=== PATIENT | female | born 1955 | race Caucasian/White ===

== ENCOUNTER 2018-06-22 10:59 | Inpatient (IN) | payer MEDICARE ==
--- NOTE | 2018-06-22 11:09 | ED ---
Psychiatric Complaint - HPI Summary HPI Summary: Patient is a 63 y/o F presenting to ED with police officers for SI. Police report that they had received a call from the patient's friend stating that the patient had expressed thoughts of suicide and had grabbed a hammer and was wielding it. However, HI is denied. When police arrived, patient was non- compliant and uncooperative. They state she had repeated, "I didn't say anything " multiple times. In the room, the patient reports that she made some statements and that her friend called police. She states, "I don't want to " but when asked if she has been experiencing SI, she states, "I have some thoughts". She notes Hx of SI, one previous suicide attempt is noted. Patient lives in [place], she claims that she needs to leave soon as otherwise she will lose her housing. PMHx of HTN, HLD, diabetes is denied. Patient states that she takes daily medications but she states she cannot recall their names. PMHx of anxiety, depression. PSHx but she does not remember what surgeries she has had. FMHx of HTN, diabetes is denied. On triage, pain is denied. Nothing is noted to aggravate/alleviate Sx. Home medications and allergies are reviewed. - History Of Current Complaint Time Seen by Provider: 06/22/18 11:03 Hx Obtained From: Patient Onset/Duration: Still Present Timing: Constant Severity Currently: None - pain denied Character: Depressed Aggravating Factor(s): Nothing Alleviating Factor(s): Nothing Associated Signs And Symptoms: Positive: Negative Has Suicidal: Reports: Thoughts, Has Prior Attempt(s) Has Homicidal: Denies: Thoughts - Allergies/Home Medications Allergies/Adverse Reactions: Allergies Allergy/AdvReac Type Severity Reaction Status Date / Time Unable to Assess Allergy Verified 06/22/18 11:23 Home Medications: Home Medications NK [No Home Medications Reported] 06/22/18 [History Confirmed 06/22/18] PMH/Surg Hx/FS Hx/Imm Hx Endocrine/Hematology History: Denies: Hx Diabetes Cardiovascular History: Denies: Hx Hypertension Sensory History: Denies: Hx Legally Blind, Hx Deafness Opthamlomology History: Denies: Hx Legally Blind EENT History: Denies: Hx Deafness Psychiatric History: Reports: Hx Anxiety, Hx Depression - Family History Known Family History: Negative: Hypertension, Diabetes - Social History Alcohol Use: None Substance Use Type: Reports: None Smoking Status (MU): Never Smoked Tobacco Review of Systems Negative: Fever - on vitals, temp is 98.1 F Psychological: Other - SI, NO HI All Other Systems Reviewed And Are Negative: Yes Physical Exam - Summary Physical Exam Summary: VITAL SIGNS: Reviewed. GENERAL: Patient is a well-developed and nourished female who is lying comfortable in the stretcher. Patient is not in any acute respiratory distress. Patient has a bald spot on head HEAD AND FACE: No signs of trauma. No ecchymosis, hematomas or skull depressions. No sinus tenderness. EYES: PERRLA, EOMI x 2, No injected conjunctiva, no nystagmus. EARS: Hearing grossly intact. Ear canals and tympanic membranes are within normal limits. MOUTH: Oropharynx within normal limits. NECK: Supple, trachea is midline, no adenopathy, no JVD, no carotid bruit, no c- spine tenderness, neck with full ROM. CHEST: Symmetric, no tenderness at palpation LUNGS: Clear to auscultation bilaterally. No wheezing or crackles. CVS: Regular rate and rhythm, S1 and S2 present, no murmurs or gallops appreciated. ABDOMEN: Soft, non-tender. No signs of distention. No rebound no guarding, and no masses palpated. Bowel sounds are normal. EXTREMITIES: FROM in all major joints, no edema, no cyanosis or clubbing. NEURO: Alert and oriented x 3. No acute neurological deficits. Speech is normal and follows commands. SKIN: Dry and warm; eczema in upper extremities PSYCH: Nervous appearing, quiet, difficulty with answering questions but answers are appropriate. No homicidal thoughts or plan. No signs of psychosis or pressure speech. No tangential speech. Triage Information Reviewed: Yes Vital Signs On Initial Exam: Initial Vitals Temp Pulse Resp BP Pulse Ox 98.1 F 74 16 136/70 99 06/22/18 11:09 06/22/18 11:09 06/22/18 11:09 06/22/18 11:09 06/22/18 11:09 Vital Signs Reviewed: Yes Diagnostics - Laboratory Result Diagrams: 06/22/18 11:50 06/22/18 11:50 Lab Statement: Any lab studies that have been ordered have been reviewed, and results considered in the medical decision making process. Re-Evaluation - Re-Evaluation First Eval Re-Evaluation Time: 11:09 Change: Unchanged Comment: Patient is medically cleared for MHE. Course/Dx - Course Assessment/Plan: Patient is a 63 y/o F presenting to ED with police officers for SI. Police report that they had received a call from the patient's friend stating that the patient had expressed thoughts of suicide and had grabbed a hammer and was wielding it. However, HI is denied. When police arrived, patient was non-compliant and uncooperative. They state she had repeated, "I didn't say anything" multiple times. In the room, the patient reports that she made some statements and that her friend called police. She states, "I don't want to " but when asked if she has been experiencing SI, she states, "I have some thoughts". She notes Hx of SI, one previous suicide attempt is noted. Blood work w/o a significant abnormality. She is medically cleared. She is awaiting for a MHE. Patient is hemodynamically stable and A+O x 3. Patient was ambulated by Dr. Blas and he recommends for the patient to be admitted to his services for inpatient treatment. Diagnosis is psychosis NOS - Differential Dx/Clinical Impression Differential Diagnosis/HQI/PQRI: Positive: Acute Psychosis, Anxiety, Depression , Suicidal Ideation Provider Diagnosis: Psychosis - Physician Notifications Discussed Care Of Patient With: Jc Blas Time Discussed With Above Provider: 16:13 Instructed by Provider To: Other - Patient's case was reviewed by Dr. lBas, patient will be admitted to [facility] under 939 status. Discharge - Sign-Out/Discharge Documenting (check all that apply): Patient Departure - admit - Discharge Plan Condition: Good - Billing Disposition and Condition Condition: GOOD Disposition: Psychiatric Facility [facility] - Attestation Statements Document Initiated by Scribe: Yes Documenting Scribe: RAMON PERDUE Provider For Whom Siobhan is Documenting (Include Credential): CHERIE KAISER MD Scribe Attestation: RAMON James, scribed for CHERIE KAISER MD on 06/22/18 at 2105. Scribe Documentation Reviewed: Yes Provider Attestation: The documentation as recorded by the RAMON sams accurately reflects the service I personally performed and the decisions made by , CHERIE KAISER MD Status of Scribe Document: Viewed
[2018-06-22 12:00] LABS: ABS Basophils 0 10^3/ul (0-0.2); ABS Eosinophils 0 10^3/ul (0-0.6); ABS Lymphocytes 1.5 10^3/ul (1.0-4.8); ABS Monocytes 0.5 10^3/ul (0-0.8); ABS Neutrophils 4.4 10^3/ul (1.5-7.7); ABS Nucleated RBC 0 10^3/ul; Eosinophil % 0.7 %; Hematocrit 44 % (33-41); Hemoglobin 14.6 g/dL (12.0-16.0); Lymphocyte % 23.1 %; Mean Corpuscular HGB Conc 33 g/dL (31-36); Mean Corpuscular Hemoglobin 30 pg (27-31); Mean Corpuscular Volume 89 fL (80-97); Mean Platelet Volume 10.2 fL (7.4-10.4); Nucleated Red Blood Cells % 0; Platelet Count 197 10^3/uL (150-450); Red Blood Count 4.94 10^6 /uL (3.70-4.87); Red Cell Distribution Width 14 % (10.5-15); White Blood Count 6.4 10^3/uL (3.5-10.8)
[2018-06-22 12:18] LABS: ALT 11 U/L (7-52); AST 15 U/L (13-39); Albumin 4.3 g/dL (3.2-5.2); Alkaline Phosphatase 41 U/L (34-104); Anion Gap 5 mmol/L (2-11); BUN/Creatinine Ratio 21.9 (8-20); Blood Urea Nitrogen 16 mg/dL (6-24); CO2 Carbon Dioxide 27 mmol/L (22-32); Chloride 110 mmol/L (101-111); EGFR African American 98.1 (>60); Globulin 2.1 g/dL (2-4); Glucose 107 mg/dL (70-100); Potassium 3.8 mmol/L (3.5-5.0); Sodium 142 mmol/L (135-145); Total Protein 6.4 g/dL (6.4-8.9)
[2018-06-22 12:42] LABS: Acetaminophen < 15 mcg/mL; Alcohol < 10 mg/dL (<10); Salicylate < 2.50 mg/dL (<30)
[2018-06-22 12:56] LABS: TSH (Thyroid Stimulating Horm) 1.04 mcIU/mL (0.34-5.60)
[2018-06-22] MEDS ORDERED: Acetaminophen TAB* 325 MG PO PRN (18:32)
[2018-06-22] MEDS ORDERED: Al Hydrox/Mg Hydrox/Simet LIQ* 30 ML UDC PO PRN (18:32)
[2018-06-23] MEDS: Vitamin THERAPEUTIC TAB PO SCH (09:06)
--- NOTE | 2018-06-23 17:38 | HP ---
HISTORY AND PHYSICAL: DATE OF ADMISSION: 06/22/18 PROVIDER: Gris Roe NP, in Psychiatry. SUPERVISING PHYSICIAN: Baron Charles MD * (DICTATED BY GRIS ROE NP) JUSTIFICATION FOR ADMISSION: The patient is in need of 24-hour supervision and care secondary to suicidal ideation and possible homicidal ideation. CHIEF COMPLAINT: "Why don't you tell me what you know first?" HISTORY OF PRESENT ILLNESS: The patient is a 63-year-old single white female with a history of depression and psychosis, who arrives, brought by police and is here on a 9.39 status following leaving her home in [place], [place] , to visit her friend, Tamar Goldman, of [place] and Madelyn coming home and finding Alma standing in the kitchen with a hammer in her hand talking about suicide. Madelyn also found a hammer stuffed in the couch along with some kind of wire or string, which Madelyn interpreted as being for strangling. Alma came from [place], [place], where she moved about 15 years ago from this area. She had been hospitalized here several times and then moved to [place]. She lives in a residence there that is similar to [place]. She has cerebral palsy and has a walk where it appears she has either footdrop or trip slightly while she walks. She is extremely unhappy about being here as she believes that her housing will be lost based on losing her voucher because she is not there. She states she wants to walk out the door here and go there to take care of business. She is afraid that if we keep her here, she will "walk out the door with nothing." Although Alma is not flagrantly psychotic, she is certainly odd and behaving in a way that is evasive and asking questions such as "have you ever done anything that you can take back" and then will not elaborate. As far as depression goes, she is not sleeping well. She does feel guilty. Her energy is low. She states she cannot concentrate. She states she has lost weight in the past 3 months. She appears to have retarded psychomotor activity and she is having suicidal ideation. PAST PSYCHIATRIC HISTORY: Alma is not forthcoming about her last 15 years of history. In fact, the long latencies that she displays are stopped by her repeating something that I have said or by answering a yes or no question. The last time she was in the hospital in [place] at [facility] was . Before that, she was also here in 2001 in December, in May of 2001, and in February of 2000. She states she does not remember what psychiatric medications she has taken, but Risperdal and Zyprexa are both listed as medication history. Depression, PTSD, and previous suicide attempts. TRAUMA HISTORY: Her mother did not accept/was not kind or tolerant to her because of her medical difficulties. FORENSIC ISSUES: She does not have access to weapons, although she did have access to a hammer. SUBSTANCE ABUSE HISTORY: None. PAST MEDICAL HISTORY: Includes her having cerebral palsy. FAMILY HISTORY: Mother and father both have depression. SOCIAL HISTORY: Alma spent time living in the [place] area. She now has an apartment in [place], [place] and is on disability. REVIEW OF SYSTEMS: The patient reports feeling fatigued. She denies shortness of breath, heat or cold intolerance, chest pain or abdominal pain. She denies neurological symptoms that are bothersome or unexpected. She denies fevers or very recent changes in weight. PHYSICAL EXAMINATION GENERAL: The patient is well-developed and nourished female, who is lying comfortably on her bed. She is not in any acute respiratory distress. She has a bald spot on head that she continually touches and then tries to cover. VITAL SIGNS: On 06/23/18 at 07:33, temperature was 96.3, pulse 66, respirations 16, O2 sat on room air 100%, blood pressure 113/55. HEENT: Head and face: Has a bald patch that appears to have been made by rubbing and touching it compulsively. No ecchymosis, hematomas, or skull depressions. No sinus tenderness. Eyes: PERRLA. EOMI x2. No injected conjunctivae. No nystagmus. Ears: Hearing grossly intact. Ear canals and tympanic membranes are within normal limits. Mouth: Oropharynx within normal limits. NECK: Supple. Trachea is midline. No adenopathy. No JVD. No carotid bruits. No C-spine tenderness. Neck with full range of motion. LUNGS: Clear to auscultation bilaterally. No wheezing or crackles. CHEST: Symmetric. No tenderness to palpation. CVS: Regular rate and rhythm. S1 and S2 present. No murmurs or gallops appreciated. ABDOMEN: Soft, nontender. No signs of distention. No rebound or guarding and no masses palpated. Bowel sounds are normal. EXTREMITIES: Full range of motion in all major joint. No edema. No cyanosis or clubbing. NEURO: Alert and oriented x4. No acute neurological deficits. Speech is normal and follows commands. SKIN: Dry and warm dry. Eczema in the upper extremities. LABORATORY DATA: Most data within normal limits. Exceptions include red blood cells high at 4.94, hematocrit high at 44, NQK-fh-afmdllflxt ratio is high at 21.9, glucose is high at 107. Serum toxicology reveals nothing. There is no urine sample reported. MENTAL STATUS EXAMINATION: This is a 63-year-old woman, who appears perhaps younger than her stated age and has dark brown hair, is 5 feet 4 inches and 125 pounds. She rubs and touches spot on the top of her head that appears to be devoid of hair and possibly scabbed. She is not picking it. She is simply touching it and seemingly examining its texture over and over again and then covering it with hair. She walks awkwardly and sometimes trips mildly on her feet. She is cooperative. She is not calm. She breaths forcefully through her mouth at times in order to calm down. Her speech is of a low volume. The tone is normal, but it is staccato. Mood, she is dysthymic. She has a constricted affect. Her thought processes appeared to be racing. She may be delusional. She seems as though she has recently made suicidal statements and perhaps had a homicidal plan. She is not obviously hallucinating. Her insight is poor. Her judgment is fair. She is alert and oriented x4. DIAGNOSES: 1. Depressive disorder. 2. Psychosis, NOS. IMPRESSION: Alma is a 63-year-old woman, who comes from [place], [place] and is here staying with a friend and became suicidal holding a hammer and threatening to hit herself with it in order to end her own life. In addition, another hammer was found in the couch along with a string or wire that the friend she is staying with believes was intended to strangle her with. PLAN: The patient is admitted to the adult behavioral health unit and placed on q.15-minute checks for her own safety. She is encouraged to participate in supportive milieu, individual, and group therapies. Estimated length of stay is 5 to 7 days. We will titrate medications to efficacy and monitor for mood and thought content. Discharge planning will include outpatient providers. GRIS ROE, GLEN [id number]/CPS #: [id number] JALEN
[2018-06-23] MEDS: risperiDONE-M * 1 MG TAB.ORADIS PO SCH (21:21)
[2018-06-24] MEDS: risperiDONE-M * 1 MG TAB.ORADIS PO SCH ×2 (09:30→21:20)
[2018-06-24] MEDS: Vitamin THERAPEUTIC TAB PO SCH (09:31)
[2018-06-24] MEDS ORDERED: ALPRAZolam TAB* 0.5 MG ONE (14:08)
--- NOTE | 2018-06-24 16:26 | PN ---
Subjective - Subjective Date of Service: 06/24/18 Service Type: 51144 Hosp care 25 min moderate complexity Subjective: Al states she has chest pain at the same time as she presents with a full day of anxiety. Collateral reveals that she is very anxious at her baseline and she states that medication never helps the pain, which she has had many times before and refers to as panic. 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 It is unclear for how long Al has been taking these medications, as getting this information from Al is quite difficult. Instead, we will make some changes: Discontinue Valium and change to Klonopin PRN. Change risperidone to 1 mg BID, discontinue Luvox and substitute clomipramine, and continue Lasix 20 mg. Objective - General Observations Appearance: Disheveled Appears Stated Age: Yes Stature: Thin Posture: Slumped Eye Contact: Avoidant Behavior/Activity: Peculiar - Interaction Observations Attitude Towards Examiner: Cooperative, Anxious, Confused Stated Mood: Dysphoric, Anxious Affect: Restricted Speech Pattern/Tone: Clear, Quiet Volume Thought Process: Incoherent, Goal Directed Perception: WNL Thought Content: Preoccupation/Ruminations, Obsessional Hallucination Type: None Delusion Type: Persecution - Cognitive Function Orientation: A&O x 4 Level of Consciousness: Awake, Alert, Appropriate Cognition: Impaired Attention/Concentration, Impaired Ability to Abstract Estimated Intelligence: Normal Insight: Difficulty Acknowledging Presence of Psyciatric Problems Judgment Within Normal Limits: No Ability to Make Reasonable Decisions: Serverely Impaired - Medication Compliance Cooperative with Inpatient Medication Regimen: Yes - Group Participation Participates in Group Activities: Partial Assessment - Assessment Merits Inpatient Hospitalization: For Immediate Safety, For Discharge Planning Plan - Plan Treatment Plan: Name: AL SOLORZANO Birthdate: 1955 [id number] 06/24/18 Al will require continued coordination with her [place], [place] providers as well as her family and friends. Continue working with Al to establish an alliance and continue with medication changes and increases. Clomipramine and risperidone may both increase. Continued Medication Management: Different Medication Medications: Current Medications Acetaminophen (Tylenol Tab*) 650 mg PO Q4H PRN PRN Reason: PAIN or TEMP > 101 F Al Hydrox/Mg Hydrox/Simethicone (Maalox Plus*) 30 ml PO Q4H PRN PRN Reason: INDIGESTION Multivitamins (Theragran Tab*) 1 tab PO DAILY [facility] Last Admin: 06/24/18 09:31 Dose: Not Given Risperidone (Risperdal-M Tab *) 1 mg PO BID [facility]; Protocol Last Admin: 06/24/18 09:30 Dose: 1 mg - Discharge Plan Discharge Plan: Outpatient Follow Up
[2018-06-24] MEDS: traZODone TAB* 100 MG PO SCH (21:20)
[2018-06-25] MEDS ORDERED: clonazePAM TAB(*) 1 MG PO PRN (08:26)
[2018-06-25] MEDS: risperiDONE-M * 1 MG TAB.ORADIS PO SCH ×2 (09:57→20:40)
[2018-06-25] MEDS: Furosemide TAB* 20 MG PO SCH (09:57)
[2018-06-25] MEDS: Vitamin THERAPEUTIC TAB PO SCH (09:57)
--- NOTE | 2018-06-25 14:43 | PN ---
Subjective - Subjective Date of Service: 06/25/18 Service Type: [id number] Hosp care 15 min low complexity Subjective: Al continues to be psychotic with a restricted affect as well as incredibly anxious. She now has Klonopin PRN. I also increased the Risperdal to 2 mg at bedtime and left it at 1 mg in the morning. Al reported that at previous doses she felt the same as she did today. She was uninterested in talking and is seen walking around the unit with an awkward gait. She states she ate today. Objective - General Observations Appearance: Neat Appears Stated Age: Yes Stature: Thin Posture: Slumped Eye Contact: Avoidant Behavior/Activity: Peculiar - Interaction Observations Attitude Towards Examiner: Cooperative, Anxious, Mistrustful Stated Mood: Dysphoric, Anxious Affect: Restricted Speech Pattern/Tone: Clear Thought Process: Disorganized Perception: WNL Thought Content: Preoccupation/Ruminations, Obsessional Hallucination Type: None Delusion Type: Persecution - Cognitive Function Orientation: A&O x 4 Level of Consciousness: Awake, Alert Cognition: Impaired Cognition, Impaired Attention/Concentration, Impaired Ability to Abstract Insight: Difficulty Acknowledging Presence of Psyciatric Problems Judgment Within Normal Limits: No Ability to Make Reasonable Decisions: Serverely Impaired - Medication Compliance Cooperative with Inpatient Medication Regimen: Yes - Group Participation Participates in Group Activities: No Assessment - Assessment Merits Inpatient Hospitalization: For Immediate Safety Clinical Impression: Al is a 63-year-old white woman who comes from [place], [place] to visit a friend, but is found holding a hammer and talking about suicide at her friend's house. Her friend called the police and Al was brought to the hospital. Plan - Plan Treatment Plan: Name: AL SOLORZANO Birthdate: 1955 [id number] 06/24/18 Al will require continued coordination with her [place], [place] providers as well as her family and friends. Continue working with Al to establish an alliance and continue with medication changes and increases. Clomipramine and risperidone may both increase. 06/25/18 Risperdal is increased to 2 mg at bedtime and 1 mg in the morning. We can be more aggressive with the Klonopin. Medications: Current Medications Acetaminophen (Tylenol Tab*) 650 mg PO Q4H PRN PRN Reason: PAIN or TEMP > 101 F Al Hydrox/Mg Hydrox/Simethicone (Maalox Plus*) 30 ml PO Q4H PRN PRN Reason: INDIGESTION Clomipramine HCl (Clomipramine (Nf)) 50 mg PO BEDTIME [facility] Last Admin: 06/24/18 21:20 Dose: 50 mg Clonazepam (Klonopin Tab(*)) 1 mg PO Q8H PRN PRN Reason: anxiety/agitation Furosemide (Lasix Tab*) 20 mg PO DAILY [facility] Last Admin: 06/25/18 09:57 Dose: 20 mg Multivitamins (Theragran Tab*) 1 tab PO DAILY [facility] Last Admin: 06/25/18 09:57 Dose: 1 tab Risperidone (Risperdal-M Tab *) 2 mg PO BEDTIME [facility]; Protocol Risperidone (Risperdal-M Tab *) 1 mg PO DAILY [facility]; Protocol Trazodone HCl (Desyrel Tab*) 300 mg PO BEDTIME [facility] Last Admin: 06/24/18 21:20 Dose: 300 mg
[2018-06-25] MEDS: traZODone TAB* 100 MG PO SCH (20:40)
[2018-06-26] MEDS: Vitamin THERAPEUTIC TAB PO SCH (10:39)
[2018-06-26] MEDS: Furosemide TAB* 20 MG PO SCH (10:39)
[2018-06-26] MEDS: risperiDONE-M * 1 MG TAB.ORADIS PO SCH ×2 (10:40→21:27)
[2018-06-26] MEDS ORDERED: CLOMIPRAMINE 50 MG PO ONE (11:00)
[2018-06-26] MEDS ORDERED: ClomiPRAMINE (NF) 25 MG CAP PO ONE (11:00)
--- NOTE | 2018-06-26 18:08 | PN ---
Subjective - Subjective Date of Service: 06/26/18 Service Type: [id number] Hosp care 15 min low complexity Subjective: Al is found lying in bed. She seems somewhat more relaxed, but states she feels no different. In one way this is good news, as it indicates that she is tolerating the increase in Risperdal and clomipramine well. Objective - General Observations Appearance: Disheveled Appears Stated Age: Yes Stature: Thin Posture: Slumped Eye Contact: Intermittent Behavior/Activity: Slowed - Interaction Observations Attitude Towards Examiner: Cooperative, Anxious, Evasive Stated Mood: Dysphoric Affect: Flat Speech Pattern/Tone: Clear Thought Process: Disorganized Perception: WNL Thought Content: Preoccupation/Ruminations, Obsessional Hallucination Type: None Delusion Type: Persecution - Cognitive Function Orientation: A&O x 4 Level of Consciousness: Awake, Alert, Appropriate Cognition: Impaired Attention/Concentration, Impaired Ability to Abstract Estimated Intelligence: Normal Insight: Difficulty Acknowledging Presence of Psyciatric Problems Judgment Within Normal Limits: No Ability to Make Reasonable Decisions: Moderately Impaired - Medication Compliance Cooperative with Inpatient Medication Regimen: Yes - Group Participation Participates in Group Activities: No Assessment - Assessment Merits Inpatient Hospitalization: For Immediate Safety Clinical Impression: Al is a 63-year-old white woman who comes from [place], [place] to visit a friend, but is found holding a hammer and talking about suicide at her friend's house. Her friend called the police and Al was brought to the hospital. Plan - Plan Treatment Plan: Name: AL SOLORZANO Birthdate: 1955 [id number] 06/24/18 Al will require continued coordination with her [place], [place] providers as well as her family and friends. Continue working with Al to establish an alliance and continue with medication changes and increases. Clomipramine and risperidone may both increase. 06/25/18 Risperdal is increased to 2 mg at bedtime and 1 mg in the morning. We can be more aggressive with the Klonopin. 06/26/18 Risperdal continues at 2 mg. Clomipramine increased by 25 mg today. It will increase to 50 mg BID tomorrow. Medications: Current Medications Acetaminophen (Tylenol Tab*) 650 mg PO Q4H PRN PRN Reason: PAIN or TEMP > 101 F Al Hydrox/Mg Hydrox/Simethicone (Maalox Plus*) 30 ml PO Q4H PRN PRN Reason: INDIGESTION Clomipramine HCl (Clomipramine (Nf)) 50 mg PO BEDTIME [facility] Stop: 06/27/18 12:00 Last Admin: 06/25/18 20:40 Dose: 50 mg Clomipramine HCl (Clomipramine (Nf)) 50 mg PO BID [facility] Clonazepam (Klonopin Tab(*)) 1 mg PO Q8H PRN PRN Reason: anxiety/agitation Furosemide (Lasix Tab*) 20 mg PO DAILY [facility] Last Admin: 06/26/18 10:39 Dose: 20 mg Multivitamins (Theragran Tab*) 1 tab PO DAILY [facility] Last Admin: 06/26/18 10:39 Dose: 1 tab Risperidone (Risperdal-M Tab *) 2 mg PO BEDTIME [facility]; Protocol Last Admin: 06/25/18 20:40 Dose: 2 mg Risperidone (Risperdal-M Tab *) 1 mg PO DAILY [facility]; Protocol Last Admin: 06/26/18 10:40 Dose: 1 mg Trazodone HCl (Desyrel Tab*) 300 mg PO BEDTIME [facility] Last Admin: 06/25/18 20:40 Dose: 300 mg
[2018-06-26] MEDS: traZODone TAB* 100 MG PO SCH (21:28)
[2018-06-27] MEDS: Furosemide TAB* 20 MG PO SCH (13:38)
[2018-06-27] MEDS: risperiDONE-M * 1 MG TAB.ORADIS PO SCH ×2 (13:38→21:13)
[2018-06-27] MEDS: Vitamin THERAPEUTIC TAB PO SCH (13:39)
[2018-06-27] MEDS: CLOMIPRAMINE 50 MG PO SCH ×2 (13:39→21:14)
[2018-06-27] MEDS: traZODone TAB* 100 MG PO SCH (21:13)
[2018-06-28] MEDS: Vitamin THERAPEUTIC TAB PO SCH ×2 (09:33→09:38)
[2018-06-28] MEDS: Furosemide TAB* 20 MG PO SCH ×2 (09:33→09:38)
[2018-06-28] MEDS: risperiDONE-M * 1 MG TAB.ORADIS PO SCH ×3 (09:33→21:22)
[2018-06-28] MEDS: CLOMIPRAMINE 50 MG PO SCH ×2 (09:33→09:38)
--- NOTE | 2018-06-28 17:30 | PN ---
Subjective - Subjective Date of Service: 06/27/18 Service Type: 41608 Hosp care 25 min moderate complexity Subjective: Saw Alma in her room. She was laying in bed because of tiredness she says. At times she was found pacing the hallways with unstable gaits. Abnormal involuntary movements of multiple rey are evident. She denies any psychiatric problems including SI or HI. Says she wants to go back to [place]. Objective - General Observations Appearance: Disheveled Stature: Thin Posture: WNL Eye Contact: Avoidant Behavior/Activity: WNL - Interaction Observations Attitude Towards Examiner: Cooperative Stated Mood: Dysphoric Affect: Blunted Thought Process: Coherent Perception: WNL Thought Content: WNL Hallucination Type: None Delusion Type: None - Cognitive Function Orientation: Person, Place Level of Consciousness: Awake, Alert, Appropriate Estimated Intelligence: Borderline Range Insight: Difficulty Acknowledging Presence of Psyciatric Problems Judgment Within Normal Limits: No Ability to Make Reasonable Decisions: Serverely Impaired - Medication Compliance Cooperative with Inpatient Medication Regimen: Yes - Group Participation Participates in Group Activities: No Assessment - Assessment Merits Inpatient Hospitalization: For Immediate Safety, For Stabilization, Pending Safe DC Plan Clinical Impression: Alma is a 63-year-old white woman who comes from [place], [place] to visit a friend, but is found holding a hammer and talking about suicide at her friend's house. Her friend called the police and Alma was brought to the hospital. Plan - Plan Treatment Plan: Name: ALMA SOLORZANO Birthdate: 1955 [id number] 06/24/18 Alma will require continued coordination with her [place], [place] providers as well as her family and friends. Continue working with Alma to establish an alliance and continue with medication changes and increases. Clomipramine and risperidone may both increase. 06/25/18 Risperdal is increased to 2 mg at bedtime and 1 mg in the morning. We can be more aggressive with the Klonopin. 06/26/18 Risperdal continues at 2 mg. Clomipramine increased by 25 mg today. It will increase to 50 mg BID tomorrow. Continued Medication Management: Continue Outpt Medication Medications: Current Medications Acetaminophen (Tylenol Tab*) 650 mg PO Q4H PRN PRN Reason: PAIN or TEMP > 101 F Al Hydrox/Mg Hydrox/Simethicone (Maalox Plus*) 30 ml PO Q4H PRN PRN Reason: INDIGESTION Clomipramine HCl (Clomipramine (Nf)) 50 mg PO BID KATHY Clonazepam (Klonopin Tab(*)) 1 mg PO Q8H PRN PRN Reason: anxiety/agitation Furosemide (Lasix Tab*) 20 mg PO DAILY KATHY Last Admin: 06/28/18 09:38 Dose: Not Given Multivitamins (Theragran Tab*) 1 tab PO DAILY KATHY Last Admin: 06/28/18 09:38 Dose: Not Given Risperidone (Risperdal-M Tab *) 2 mg PO BEDTIME KATHY; Protocol Last Admin: 06/27/18 21:13 Dose: 2 mg Risperidone (Risperdal-M Tab *) 1 mg PO DAILY KATHY; Protocol Last Admin: 06/28/18 09:38 Dose: Not Given Trazodone HCl (Desyrel Tab*) 300 mg PO BEDTIME KATHY Last Admin: 06/27/18 21:13 Dose: 300 mg - Discharge Plan Discharge Plan: Outpatient Follow Up Outpatient Program: [facility]
[2018-06-28] MEDS: traZODone TAB* 100 MG PO SCH (21:22)
[2018-06-28] MEDS: ClomiPRAMINE (NF) 25 MG CAP PO SCH (21:23)
--- NOTE | 2018-06-29 10:01 | PN ---
Subjective - Subjective Date of Service: 06/29/18 Service Type: 08265 Hosp care 25 min moderate complexity Subjective: Patient has declined medications since yesterday. When asked about barriers to compliance, patient reports "seems like they aren't working." She denies side effects. Patient reports mood to be "anxious and depressed." She endorses obsessive thoughts but declines to elaborate. 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 She endorses low energy and decrease appetite. She is receptive to information that medications are likely going to help with anxiety and depression. She expresses desire to pursue to discharge planning. Patient is unable to identify targets that indicate readiness for discharge. Objective - General Observations Appearance: Unkempt Stature: Thin Posture: Slumped Eye Contact: Avoidant Behavior/Activity: Slowed, Peculiar - Interaction Observations Attitude Towards Examiner: Anxious, Mistrustful Stated Mood: Anxious Affect: Blunted Speech Pattern/Tone: Delayed, Quiet Volume Thought Process: Impoverished Perception: WNL Thought Content: Obsessional Thought Process: Lethality: Paranoid Ideation Hallucination Type: Denies Delusion Type: Denies - Cognitive Function Orientation: A&O x 4 Level of Consciousness: Alert Cognition: Impaired Attention/Concentration Estimated Intelligence: Normal Insight: Difficulty Acknowledging Presence of Psyciatric Problems Judgment Within Normal Limits: No Ability to Make Reasonable Decisions: Serverely Impaired - Medication Compliance Cooperative with Inpatient Medication Regimen: No - Group Participation Participates in Group Activities: No Assessment - Assessment Merits Inpatient Hospitalization: For Immediate Safety, For Stabilization, Pending Safe DC Plan Inpatient DSM-V Dx: F42.9 Clinical Impression: Al is a 63-year-old white woman who comes from [place], [place] to visit a friend, but is found holding a hammer and talking about suicide at her friend's house. She has a history of depression, PTSD, suicide attempts, OCD and hoarding. She is intermittently adherent to medications and a poor history. She merits hospitalization for immediate safety, stabilization and safe discharge plan to return to [facility]. Plan - Plan Treatment Plan: Name: AL SOLORZANO Birthdate: 1955 [id number] 06/24/18 Al will require continued coordination with her [place], [place] providers as well as her family and friends. Continue working with Al to establish an alliance and continue with medication changes and increases. Clomipramine and risperidone may both increase. 06/25/18 Risperdal is increased to 2 mg at bedtime and 1 mg in the morning. We can be more aggressive with the Klonopin. 06/26/18 Risperdal continues at 2 mg. Clomipramine increased by 25 mg today. It will increase to 50 mg BID tomorrow. 06/29/18 obtain EKG. add clonazepam 0.5mg BID matthew. continue other medications as ordered. Continued Medication Management: Start Medication Medications: Current Medications Acetaminophen (Tylenol Tab*) 650 mg PO Q4H PRN PRN Reason: PAIN or TEMP > 101 F Al Hydrox/Mg Hydrox/Simethicone (Maalox Plus*) 30 ml PO Q4H PRN PRN Reason: INDIGESTION Clomipramine HCl (Clomipramine (Nf)) 50 mg PO BID MATTHEW Last Admin: 06/28/18 21:23 Dose: 50 mg Clonazepam (Klonopin Tab(*)) 1 mg PO Q8H PRN PRN Reason: anxiety/agitation Furosemide (Lasix Tab*) 20 mg PO DAILY MATTHEW Last Admin: 06/28/18 09:38 Dose: Not Given Multivitamins (Theragran Tab*) 1 tab PO DAILY MATTHEW Last Admin: 06/28/18 09:38 Dose: Not Given Risperidone (Risperdal-M Tab *) 2 mg PO BEDTIME MATTHEW; Protocol Last Admin: 06/28/18 21:22 Dose: 2 mg Risperidone (Risperdal-M Tab *) 1 mg PO DAILY MATTHEW; Protocol Last Admin: 06/28/18 09:38 Dose: Not Given Trazodone HCl (Desyrel Tab*) 300 mg PO BEDTIME MATTHEW Last Admin: 06/28/18 21:22 Dose: 300 mg - Discharge Plan Discharge Plan: Inpatient Hospitalization
[2018-06-29] MEDS: risperiDONE-M * 1 MG TAB.ORADIS PO SCH ×4 (10:04→21:19)
[2018-06-29] MEDS: Vitamin THERAPEUTIC TAB PO SCH (10:04)
[2018-06-29] MEDS: ClomiPRAMINE (NF) 25 MG CAP PO SCH ×3 (10:04→21:21)
[2018-06-29] MEDS: Furosemide TAB* 20 MG PO SCH (10:04)
[2018-06-29] MEDS: clonazePAM TAB(*) 1 MG PO SCH ×2 (13:51→21:18)
[2018-06-29] MEDS: traZODone TAB* 100 MG PO SCH (21:19)
[2018-06-30] MEDS: risperiDONE-M * 1 MG TAB.ORADIS PO SCH ×2 (09:23→21:23)
[2018-06-30] MEDS: clonazePAM TAB(*) 1 MG PO SCH ×2 (09:23→21:22)
[2018-06-30] MEDS: Furosemide TAB* 20 MG PO SCH (09:23)
[2018-06-30] MEDS: Vitamin THERAPEUTIC TAB PO SCH (09:23)
[2018-06-30] MEDS: ClomiPRAMINE (NF) 25 MG CAP PO SCH ×2 (10:14→21:25)
[2018-06-30 16:54] LABS: Urine Appearance Cloudy; Urine Bacteria Absent (Absent); Urine Bilirubin Negative (Negative); Urine Blood Negative (Negative); Urine Color Yellow; Urine Glucose Negative (Negative); Urine Ketones Negative (Negative); Urine Nitrite Negative (Negative); Urine Protein Negative (Negative); Urine Red Blood Cell Absent (Absent); Urine Specific Gravity 1.014 (1.010-1.030); Urine Urobilinogen Negative (Negative); Urine White Blood Cell Trace(0-5/hpf) (Absent)
[2018-06-30] MEDS: traZODone TAB* 100 MG PO SCH (21:23)
[2018-07-01] MEDS: Furosemide TAB* 20 MG PO SCH (09:50)
[2018-07-01] MEDS: clonazePAM TAB(*) 1 MG PO SCH ×2 (09:55→20:53)
[2018-07-01] MEDS: ClomiPRAMINE (NF) 25 MG CAP PO SCH (09:56)
[2018-07-01] MEDS: Vitamin THERAPEUTIC TAB PO SCH (09:56)
[2018-07-01] MEDS: risperiDONE-M * 1 MG TAB.ORADIS PO SCH ×2 (09:56→20:52)
--- NOTE | 2018-07-01 14:15 | PN ---
Subjective - Subjective Date of Service: 07/01/18 Service Type: 24647 Hosp care 25 min moderate complexity Subjective: Patient is exhibiting less neurovegetative symptoms. She showered with staff prompting and is participating in groups. Patient reports difficulty sleeping, mildly depressed mood and anxiety. She states "peace of mind" typically helps with sleep. She reported need to pay her electric bill over the phone. With documentation writer supervision, she attempted to do so but did not have her account number. She reports desire to be discharged today. Barrel Cap Setter informs her of objective improvement in the past two days and continued efforts to coordinate discharge plan with family. Left message with current outpatient psych provider Zen Willams NP in [place] to discuss medication management. Objective - General Observations Appearance: Well Groomed Stature: WNL Posture: Slumped Eye Contact: Average Behavior/Activity: WNL - Interaction Observations Attitude Towards Examiner: Anxious, Mistrustful Stated Mood: Anxious Affect: Flat Speech Pattern/Tone: Delayed, Quiet Volume Thought Process: Circumstantial Perception: WNL Thought Content: Obsessional Hallucination Type: Denies Delusion Type: Denies - Cognitive Function Orientation: A&O x 4 Level of Consciousness: Alert Cognition: WNL Estimated Intelligence: Normal Insight: Difficulty Acknowledging Presence of Psyciatric Problems Judgment Within Normal Limits: No Ability to Make Reasonable Decisions: Moderately Impaired - Medication Compliance Cooperative with Inpatient Medication Regimen: Yes - Group Participation Participates in Group Activities: Yes Assessment - Assessment Merits Inpatient Hospitalization: For Immediate Safety, For Stabilization, For Discharge Planning, Pending Safe DC Plan Inpatient DSM-V Dx: F42.9 Clinical Impression: Alma is a 63-year-old white woman who comes from [place], [place] to visit a friend, but is found holding a hammer and talking about suicide at her friend's house. She has a history of depression, PTSD, suicide attempts, OCD and hoarding. She is intermittently adherent to medications and a poor historian. She merits hospitalization for immediate safety, stabilization and safe discharge plan to return to [facility]. Plan - Plan Treatment Plan: Name: ALMA SOLORZANO Birthdate: 1955 [id number] 06/24/18 Alma will require continued coordination with her [place], [place] providers as well as her family and friends. Continue working with Alma to establish an alliance and continue with medication changes and increases. Clomipramine and risperidone may both increase. 06/25/18 Risperdal is increased to 2 mg at bedtime and 1 mg in the morning. We can be more aggressive with the Klonopin. 06/26/18 Risperdal continues at 2 mg. Clomipramine increased by 25 mg today. It will increase to 50 mg BID tomorrow. 06/29/18 obtain EKG. add clonazepam 0.5mg BID matthew. continue other medications as ordered. 08/01/18 increase clomipramine to 75mg BID. continue collaboration with outpatient providers and family. Continued Medication Management: Start Medication Medications: Current Medications Acetaminophen (Tylenol Tab*) 650 mg PO Q4H PRN PRN Reason: PAIN or TEMP > 101 F Al Hydrox/Mg Hydrox/Simethicone (Maalox Plus*) 30 ml PO Q4H PRN PRN Reason: INDIGESTION Clomipramine HCl (Clomipramine (Nf)) 75 mg PO BID MATTHEW Clonazepam (Klonopin Tab(*)) 0.5 mg PO BID MATTHEW Last Admin: 07/01/18 09:55 Dose: 0.5 mg Furosemide (Lasix Tab*) 20 mg PO DAILY MATTHEW Last Admin: 07/01/18 09:50 Dose: Not Given Multivitamins (Theragran Tab*) 1 tab PO DAILY MATTHEW Last Admin: 07/01/18 09:56 Dose: 1 tab Risperidone (Risperdal-M Tab *) 2 mg PO BEDTIME MATTHEW; Protocol Last Admin: 06/30/18 21:23 Dose: 2 mg Risperidone (Risperdal-M Tab *) 1 mg PO 0900 MATTHEW; Protocol Last Admin: 07/01/18 09:56 Dose: 1 mg Trazodone HCl (Desyrel Tab*) 300 mg PO BEDTIME MATTHEW Last Admin: 06/30/18 21:23 Dose: 300 mg - Discharge Plan Discharge Plan: Inpatient Hospitalization
--- NOTE | 2018-07-01 16:58 | PN ---
BSU: Group Therapy Note - Service Type Service Type: [id number] Group Psychotherapy - Medication Education Group: Patient attended group and presented with flat affect that did not vary with discussion. Although responsive to direct prompts to respond to questions, patient did not engage in spontaneous conversation.
[2018-07-01] MEDS: traZODone TAB* 100 MG PO SCH (20:51)
[2018-07-01] MEDS: CMCS:ClomiPRAMINE (NF) 25 MG CAP PO SCH (20:52)
[2018-07-02] MEDS: Furosemide TAB* 20 MG PO SCH (09:39)
[2018-07-02] MEDS: clonazePAM TAB(*) 1 MG PO SCH ×2 (09:55→21:50)
[2018-07-02] MEDS: CMCS:ClomiPRAMINE (NF) 25 MG CAP PO SCH ×2 (09:55→21:49)
[2018-07-02] MEDS: Vitamin THERAPEUTIC TAB PO SCH (09:55)
--- NOTE | 2018-07-02 11:02 | PN ---
BSU: Group Therapy Note - Service Type Service Type: [id number] Group Psychotherapy - Cognitive Behavioral Group Therapy ( CBT):Patient attended CBT programming this morning and presented with flat affect that did not vary with discussion. Although responsive to direct prompts to respond to questions, patient did not engage in spontaneous conversation.
[2018-07-02] MEDS ORDERED: RISPERIDONE CONSTA 25 MG IM ONE (13:00)
[2018-07-02] MEDS: traZODone TAB* 100 MG PO SCH (21:49)
[2018-07-02] MEDS: risperiDONE-M * 1 MG TAB.ORADIS PO SCH (21:49)
[2018-07-03] MEDS: clonazePAM TAB(*) 1 MG PO SCH ×2 (10:05→20:57)
[2018-07-03] MEDS: Vitamin THERAPEUTIC TAB PO SCH (10:05)
[2018-07-03] MEDS: CMCS:ClomiPRAMINE (NF) 25 MG CAP PO SCH ×2 (10:06→20:59)
[2018-07-03] MEDS: Furosemide TAB* 20 MG PO SCH (10:07)
--- NOTE | 2018-07-03 11:06 | PN ---
Subjective - Subjective Date of Service: 07/03/18 Service Type: 93601 Hosp care 15 min low complexity Subjective: Patient denies untoward effects from risperidone injection. She states understanding of recommendation to continue oral coverage x2 weeks. She asks marketing copywriter to play a board game. She makes pleasant conversation while playing a game together. Patient reports her father was a GP then psychiatrist in the [place] area. While living here, she took some classes at [employer]. She states the family lived in [place] for many years, as well. She states that she moved to [place] after his passing to try to reconnect with her mother "but that didn' t go well." Pt reports her mother passing in the last year has been difficult for her. Objective - General Observations Appearance: Well Groomed Stature: WNL Posture: Atypical - r/t hx of CP Eye Contact: Average Behavior/Activity: WNL - Interaction Observations Attitude Towards Examiner: Cooperative Stated Mood: Euthymic Affect: Blunted Speech Pattern/Tone: Clear, Appropriate, Normal Volume Thought Process: Coherent, Goal Directed Perception: WNL Thought Content: Obsessional Hallucination Type: None Delusion Type: None - Cognitive Function Orientation: A&O x 4 Level of Consciousness: Alert Cognition: WNL Estimated Intelligence: Normal Insight: Difficulty Acknowledging Presence of Psyciatric Problems Judgment Within Normal Limits: No Ability to Make Reasonable Decisions: Mildly Impaired - Medication Compliance Cooperative with Inpatient Medication Regimen: Yes - Group Participation Participates in Group Activities: Yes Assessment - Assessment Merits Inpatient Hospitalization: For Immediate Safety, Consolidate Improvements , For Discharge Planning Inpatient DSM-V Dx: F42.9 Clinical Impression: Al is a 63-year-old white woman who comes from [place], [place] to visit a friend, but is found holding a hammer and talking about suicide at her friend's house. She has a history of depression, PTSD, suicide attempts, OCD and hoarding. She is increasingly adherent to medications and showing improvement in participation on unit. She merits hospitalization for immediate safety, stabilization and safe discharge plan to return to [facility]. Tentative dc on 07/06/18. Plan - Plan Treatment Plan: Name: AL SOLORZANO Birthdate: 1955 [id number] 06/24/18 Al will require continued coordination with her [place], [place] providers as well as her family and friends. Continue working with Al to establish an alliance and continue with medication changes and increases. Clomipramine and risperidone may both increase. 06/25/18 Risperdal is increased to 2 mg at bedtime and 1 mg in the morning. We can be more aggressive with the Klonopin. 06/26/18 Risperdal continues at 2 mg. Clomipramine increased by 25 mg today. It will increase to 50 mg BID tomorrow. 06/29/18 obtain EKG. add clonazepam 0.5mg BID matthew. continue other medications as ordered. 07/01/18 increase clomipramine to 75mg BID. continue collaboration with outpatient providers and family. 07/03/18 patient received risperidone consta 25mg IM, will continue to supplement with oral dose [id number]. continue other medications, as ordered. she is participating in programming and ADLs. tentative dc 07/06/18. Continued Medication Management: Start Medication Medications: Current Medications Acetaminophen (Tylenol Tab*) 650 mg PO Q4H PRN PRN Reason: PAIN or TEMP > 101 F Al Hydrox/Mg Hydrox/Simethicone (Maalox Plus*) 30 ml PO Q4H PRN PRN Reason: INDIGESTION Clomipramine HCl (Clomipramine (Nf)) 75 mg PO BID [facility] Last Admin: 07/03/18 10:06 Dose: 75 mg Clonazepam (Klonopin Tab(*)) 0.5 mg PO BID MATTHEW Last Admin: 07/03/18 10:05 Dose: 0.5 mg Furosemide (Lasix Tab*) 20 mg PO DAILY MATTHEW Last Admin: 07/03/18 10:07 Dose: Not Given Multivitamins (Theragran Tab*) 1 tab PO DAILY MATTHEW Last Admin: 07/03/18 10:05 Dose: 1 tab Risperidone (Risperdal-M Tab *) 2 mg PO BEDTIME MATTHEW x2 weeks Last Admin: 07/02/18 21:49 Dose: 2 mg Trazodone HCl (Desyrel Tab*) 300 mg PO BEDTIME MATTHEW Last Admin: 07/02/18 21:49 Dose: 300 mg Risperidone Consta 25mg IM q2 weeks, first dose given on 07/02/18 - Discharge Plan Discharge Plan: Inpatient Hospitalization Outpatient Program: [facility]
--- NOTE | 2018-07-03 11:41 | PN ---
BSU: Group Therapy Note - Service Type Service Type: [id number] Group Psychotherapy - Cognitive Behavioral Group Therapy ( CBT):Patient attended CBT programming this morning and presented with flat affect that did not vary with discussion. Although responsive to direct prompts to respond to questions, patient did not engage in spontaneous conversation.
[2018-07-03] MEDS: traZODone TAB* 100 MG PO SCH (20:56)
[2018-07-03] MEDS: risperiDONE-M * 1 MG TAB.ORADIS PO SCH (20:56)
[2018-07-04] MEDS: Vitamin THERAPEUTIC TAB PO SCH (09:03)
[2018-07-04] MEDS: clonazePAM TAB(*) 1 MG PO SCH ×2 (09:04→20:37)
[2018-07-04] MEDS: CMCS:ClomiPRAMINE (NF) 25 MG CAP PO SCH ×2 (09:04→20:38)
[2018-07-04] MEDS: Furosemide TAB* 20 MG PO SCH (09:05)
[2018-07-04] MEDS: risperiDONE-M * 1 MG TAB.ORADIS PO SCH (20:39)
[2018-07-04] MEDS: traZODone TAB* 100 MG PO SCH (20:39)
[2018-07-05] MEDS: Furosemide TAB* 20 MG PO SCH (09:41)
[2018-07-05] MEDS: Vitamin THERAPEUTIC TAB PO SCH (09:43)
[2018-07-05] MEDS: CMCS:ClomiPRAMINE (NF) 25 MG CAP PO SCH ×2 (09:44→21:45)
[2018-07-05] MEDS: clonazePAM TAB(*) 1 MG PO SCH (09:44)
[2018-07-05] MEDS: traZODone TAB* 100 MG PO SCH (21:44)
[2018-07-05] MEDS: risperiDONE-M * 1 MG TAB.ORADIS PO SCH (21:44)
[2018-07-05] MEDS: clonazePAM TAB(*) 0.5 MG PO SCH (21:44)
[2018-07-06 08:32] VITALS: BP 95/55
[2018-07-06] MEDS: Furosemide TAB* 20 MG PO SCH (09:01)
[2018-07-06] MEDS: Vitamin THERAPEUTIC TAB PO SCH (09:01)
[2018-07-06] MEDS: CMCS:ClomiPRAMINE (NF) 25 MG CAP PO SCH (09:01)
[2018-07-06] MEDS: clonazePAM TAB(*) 0.5 MG PO SCH (09:02)
--- NOTE | 2018-07-07 01:15 | DS ---
DISCHARGE SUMMARY: DATE OF ADMISSION: 06/22/18 DATE OF DISCHARGE: 07/06/18 PROVIDER: Gris Roe NP in Psychiatry. SUPERVISING PHYSICIAN: Dr. Baron Charles.* (DICTATED BY GRIS ROE NP) DIAGNOSES: 1. Obsessive-compulsive disorder. 2. Psychosis, not otherwise specified. CONDITION AT THE TIME OF DISCHARGE: Improved, psychiatrically cleared. Stable. Alma participated in groups and was social with some peers. Her family is agreeable to her discharge, as is Alma. She has improved here significantly psychiatrically. She tolerated new medications well. She agrees to a long-acting injectable of Risperdal Consta. She will be attending [facility] in [place]. MENTAL STATUS EXAM: At the time of discharge, Alma is calm, cooperative, and makes reasonably good eye contact. She is alert and oriented x4. Her grooming is adequate. Her speech pace is normal. Her thought processes are logical. She is not psychotic or delusional. She denies AH, VH, SI, and HI. Her insight and judgment are fair to good. She is willing to follow up and she is urged to see the therapist who comes to her apartment. DISCHARGE INSTRUCTIONS TO THE PATIENT: A. Medications 1. Clomipramine 75 mg b.i.d. 2. Klonopin 0.5 mg b.i.d. 3. Lasix 20 mg daily. 4. Risperdal 2 mg at bedtime. 5. Trazodone 300 mg at bedtime. B. Diet is regular. C. Activities as tolerated. Alma is a nonsmoker. There are no studies pending at the time of discharge. D. Followup care: She sees Jair Willams, nurse practitioner, on 07/09/18 at 9:30 in the morning; [facility] [place], [place]. She has a home health care case manager named Isabel, who will contact Alma by telephone to schedule an at-home meeting. She also has an appointment at [facility] in [place], [place]. Her nurse, Becky, will restart services on 07/07/18. She will meet with Alma at her home on that day. D. Disposition: Alma is being discharged by bus to [place], [place] , where she will return to her apartment. E. Substance abuse followup is not indicated. HOSPITAL COURSE: Part A. Chief Complaint: "Why don't you tell me what you know first?" The patient is a 63-year-old single white female with a history of depression and psychosis who arrives, brought by police, and is here on a 9.39 status following leaving her home in [place], [place], to visit her friend, Tamar Goldman, of [place] and Madelyn coming home and finding Alma standing in the kitchen with a hammer in her hand talking about suicide. Madelyn also found a hammer stuffed in the couch along with some kind of wire or string , which Madelyn interpreted as being for strangling. Alma came from [place], [place], where she moved to about 15 years ago from this area. She had been hospitalized here several times and then moved to [place]. She lives in a residence there that is similar to [place]. She has cerebral palsy and has a walk where it appears that she either has footdrop or she trips slightly while she walks. She is extremely unhappy about being here as she believes that her housing will be lost based on losing her voucher because she is not there. She states she wants to walk out the door here and go there to take care of business. She is afraid that if we keep her here, she will "walk out the door with nothing." Although Alma is not flagrantly psychotic, she is certainly odd and behaving in a way that is evasive and asking questions such as, "Have you ever done anything that you can't take back" and then will not elaborate. As far as depression goes, she is not sleeping well. She does feel guilty. Her energy is low. She states she cannot concentrate. She states she has lost weight in the past 3 months. She appears to have retarded psychomotor activity and she is having suicidal ideation. Part B. Psychiatric treatment was rendered. Alma was admitted to the Adult Behavioral Unit and placed on 15-minute checks for safety. She did advance to 30- minute checks. She did well on the unit. She eventually went to groups and interacted with peers well. There were several med changes. The order of events was that on 06/24/18, Alma required coordination with her providers in [place], [place], and an alliance was attempted to be formed. Clomipramine and Risperdal were started. On 06/25/18, Risperdal was increased to 2 mg at bedtime and 1 mg in the morning. I noted in the chart that more aggression with p.r.n. Klonopin could be helpful. On 06/26/18, Risperdal continued at 2 mg, clomipramine increased by 25 mg today. It will increase to 50 mg b.i.d. tomorrow, meaning 06/29/18. On 06/29/18, we ordered an EKG and we ordered the clonazepam to be scheduled at 0.5 mg b.i.d. On 07/01/18, we increased clomipramine to 75 mg b.i.d. and continued collaboration with outpatient providers and family. On 07/03/18, Alma received the Risperdal Consta 25 mg intermuscular injection and she will continue other medications. She is currently at that time participating in programing and doing her ADLs with the planned discharge date of 07/06/18, which indeed was the date of discharge. Although she is on Risperdal, she declined to have her HA1c and lipid panels drawn. She also declined to offer a urine sample for a toxicology screen. We did not meet with family, but Jesse De La Rosa was very assertive with coordinating with her outpatient providers and her family. She is much improved. She appears physically better with a more open countenance. She appears to have gained a small amount of weight and she seems more comfortable. She is being discharged and taken to the bus station by staff members, who will ensure that she takes the proper transportation to get home. Her medications were sent to [facility] on [facility] in [place], [place]. GRIS ROE, GLEN [id number]/[facility] #: [id number] JALEN
== END 2018-07-06 08:55 | disposition home or self-care (01) | DRG 882 ==
LOC: ED 10:59 → BSU 18:32
PROVIDERS: ADMIT Psychiatry & Neurology Psychiatry; ATTEND Psychiatry & Neurology Psychiatry
PROC: GZHZZZZ Group Psychotherapy (ICD-10-PCS; principal; 2018-07-01)
DX: F42.9 Obsessive-compulsive disorder, unspecified (principal); F29 Unspecified psychosis not due to a substance or known physiological condition; F41.9 Anxiety disorder, unspecified; F32.9 Major depressive disorder, single episode, unspecified; F43.10 Post-traumatic stress disorder, unspecified; G80.9 Cerebral palsy, unspecified; Z91.5 Personal history of self-harm
CPT/HCPCS: 36415; 80053; 80320; 80329; 81003; 81015; 84443; 85025; 87086; 90853; 93005; 99222; 99231; 99232; 99238; 99284; A9270-GY; G0480